=== PATIENT | male | born 1980 | race Caucasian/White ===

== ENCOUNTER 2021-09-27 12:57 | Emergency (ER) | payer MEDICAID ==
[~2021-09-27] VITALS: Ht 170.2 cm; Wt 80.0 kg
[2021-09-27 13:45] LABS: BASOPHILS % 0.2 % (0.0-2.0); EOSINOPHILS % 1.1 % (0.0-5.0); HEMATOCRIT. 47.3 % (42.0-52.0); HEMOGLOBIN. 16.6 g/dL (14.0-18.0); MEAN CORPUSCULAR HEMOGLOBIN 30.9 pg (28.0-32.0); MONOCYTES % 7.9 % (2.0-8.0); NEUTROPHILS % 60.8 % (40.0-76.0); PLATELET 218 x1000/uL (130-400); RED BLOOD CELL COUNT 5.38 mill/uL (4.7-6.1); RED CELL DISTRIBUTION WIDTH 13.1 % (11.6-14.6)
[2021-09-27 13:53] LABS: CHLORIDE 108 mEq/L (98-107)
[2021-09-27] MEDS ORDERED: FAMO-135 MT (14:15)
[2021-09-27 14:42] VITALS: BP 127/62
== END 2021-09-27 14:43 | disposition home or self-care (01) ==
LOC: ER 12:57
DX: J02.9 Acute pharyngitis, unspecified (principal)
CPT/HCPCS: 36415; 76536; 80053; 84443; 85025; 99284